=== PATIENT | female | born 1995 | race African-American/Black ===

== ENCOUNTER 2020-04-26 21:24 | Emergency (ER) | payer OTHER, SELFPAY ==
--- NOTE | ~2020-04-26 | XR_ITS ---
EXAMINATION: XR chest 2V DATE: 04/26/2020 22:08 INDICATION: Mid to right-sided chest pain TECHNIQUE: PA and lateral views of the chest were obtained. COMPARISON: None FINDINGS: The lungs are clear with no focal airspace opacities, pulmonary edema, pleural effusion or pneumothor ax. The cardiomediastinal silhouette is normal. Visualized bones and soft tissues are unremarkable. IMPRESSION: 1. Normal chest radiograph. Reviewed, dictated and finalized at location A. IMPRESSION: 1. Normal chest radiograph.
[2020-04-26 21:25] VITALS: BP 107/71; PULSE 74; RESP 18; TEMP 37.2; O2SAT 100
--- NOTE | 2020-04-26 21:33 | ECG_ITS ---
Measurements Intervals [place] Rate: 68 P: 59 MO: 135 QRS: 64 QRSD: 93 T: 28 QT: 355 QTc: 378 Interpretive Statements SINUS RHYTHM WITH SINUS ARRHYTHMIA ST ELEVATION IN DIFFUSE LEADS- PROBABLY EARLY REPOLARIZATION BORDERLINE ECG Electronically Signed On 04-27-2020 7:10:13 CDT by Felton Hawkins D.O.
[2020-04-26 21:50] LABS: Basophils Percent Auto 0.4 % (0.2-1.2); Eosinophils Absolute Auto 0.1 K/mm3 (0-0.3); Hematocrit 38.3 % (37.0-47.0); Hemoglobin 12.9 g/dL (12.0-15.0); Immature Granulocyte Absolute 0.01 K/mm3 (0.00-0.031); Immature Granulocyte Percent A 0.2 % (0-0.5); Lymphocytes Percent Auto 57.6 % (18.3-44.2); Mean Corpuscular HGB Conc 33.7 g/dl (32-36); Mean Corpuscular Hemoglobin 31.8 pg (26-34); Mean Corpuscular Volume 94.3 fl (80-100); Mean Platelet Volume 10.4 fl (7.4-10.4); Monocytes Absolute Auto 0.4 K/mm3 (0.1-0.6); Monocytes Percent Auto 7.6 % (2.6-8.5); Neutrophils Absolute Auto 1.6 K/mm3 (1.3-6.7); Neutrophils Percent Auto 33.2 % (45.5-73.1); Platelet Count Result 268 k/mm3 (150-375); Red Blood Count 4.06 M/mm3 (4.2-5.4); Red Cell Distribution Width 12.6 % (11.5-14.5); White Blood Count 4.9 K/mm3 (4.5-10.0)
[2020-04-26] MEDS: ASPIRIN 81 MG CHEWABLE TABLET 324 MG PO (21:50)
[2020-04-26 21:58] LABS: INR 1.1; Prothrombin Time 13.8 Seconds (11.1-14.7)
--- NOTE | 2020-04-26 21:58 | ED.SYNCOPE ---
HPI - Syncope General Chief Complaint: Chest Pain Stated Complaint: syncope/ CP Time Seen by Provider: 04/26/20 21:45 History of Present Illness HPI narrative: Patient presents with her female partner after fainting at work today. 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 Does not have air conditioning. She got up to return to work, and passed out. There was no injury. She has had chest pain in the afternoon, upper chest without radiation. She has no history of asthma and does not do cocaine. She has not been sick this week. She has no medical history. No surgeries. She does smoke cigarettes drinks some alcohol and smokes marijuana. MD complaint: felt faint Onset (ago): minute(s) -: second(s) Prodromal symptoms: chest pain Review of Systems Review of Systems: Narrative: CONSTITUTIONAL: Denies fever, chills, or sweats. EYES: Denies visual changes, redness, or discharge. ENT: Denies rhinorrhea, congestion, sore throat, or otalgia. CARDIOVASCULAR: Denies palpitations, or edema. RESPIRATORY: Denies cough or dyspnea. GASTROINTESTINAL: Denies abdominal pain, nausea, vomiting, or diarrhea. GENITOURINARY: Denies dysuria or hematuria. SKIN: Denies rash or itching. MUSCULOSKELETAL: Denies back pain, joint pain, or myalgia. NEUROLOGIC: Denies headache, numbness, or weakness. PSYCHIATRIC: Denies anxiety or depression. [facility] Social History Social History (Updated 04/26/20 @ 22:02 by Jennifer Fisher MD) Smoking status: Current every day smoker Alcohol intake: current Substance use: current Substance use type: marijuana Gender identity (if verbalized by the patient): Female Exam Narrative: Exam Narrative: GENERAL: Well-appearing, well-nourished, and in no acute distress. Short hair HEAD: Normocephalic, atraumatic. EYES: PERRLA and EOMI. ENT: Nares clear, no rhinorrhea or epistaxis. Mucous membranes moist. NECK: Supple. CHEST: Clear to auscultation. No respiratory distress. Nipple piercings. Tenderness at the left fourth intercostal space on the sternum. HEART: Regular rate and rhythm. No murmur heard. Normal peripheral pulses. ABDOMEN: Soft, nontender, nondistended, normal active bowel sounds. EXTREMITIES: Normal range of motion. No edema. SKIN: Warm, dry, no rash. NEURO: No focal deficits. Alert and oriented x3. PSYCH: Normal mood and affect. Course Reevaluation(s) Reevaluation #1: Went in to tell the patient that her tests are all come back fine, and that heat exposure can certainly make people faint, and the pain on her chest wall is called costochondritis, for which she could take ibuprofen. Her uncle is here now and he will drive her home. Date: 04/27/20 Time: 00:42 Vital Signs Vital signs: Vital Signs Temperature 99.0 F 04/26/20 21:25 Pulse Rate 74 04/26/20 21:25 Respiratory Rate 18 04/26/20 21:25 Blood Pressure 107/71 04/26/20 21:25 Pulse Oximetry 100 04/26/20 21:25 Temperature 99.0 F 04/26/20 21:25 Pulse Rate 74 04/26/20 21:25 Respiratory Rate 18 04/26/20 21:25 Blood Pressure 107/71 04/26/20 21:25 Pulse Oximetry 100 04/26/20 21:25 MDM - Syncope Medical Records Attestation: I reviewed the patient's medical records. Lab Data Attestation: I reviewed the patient's lab results. Result diagrams: 04/26/20 21:44 04/26/20 21:44 Labs: Lab Results 04/26/20 04/26/20 04/26/20 Range/Units 21:44 21:44 21:44 WBC 4.9 (4.5-10.0) K/mm3 RBC 4.06 L (4.2-5.4) M/mm3 Hgb 12.9 (12.0-15.0) g/dL Hct 38.3 (37.0-47.0) % MCV 94.3 (80-100) fl MCH 31.8 (26-34) pg MCHC 33.7 (32-36) g/dl RDW 12.6 (11.5-14.5) % Plt Count 268 (150-375) k/mm3 MPV 10.4 (7.4-10.4) fl Immature Gran % (Auto) 0.2 (0-0.5) % Neut % (Auto) 33.2 L (45.5-73.1) % Lymph % (Auto) 57.6 H (18.3-44.2) % [place] % (Auto) 7.6 (2.6-8.5) % Eos % (Auto) 1.0 (0-4.4) % Baso % (Auto) 0.4 (0.2-1.2)
[2020-04-26 21:59] LABS: Partial Thromboplastin Time 31.4 SECONDS (22.3-36.8)
[2020-04-26 22:02] LABS: Blood Urea Nitrogen 7 mg/dL (7-17); Calcium 9.1 mg/dL (8.4-10.2); Carbon Dioxide 28 mmol/L (22-30); Chloride 105 mmol/L (98-107); Estimated Glomerular Filt Rate > 60; Glucose 82 mg/dL (65-105); Potassium 3.7 mmol/L (3.4-5.0); Sodium 137 mmol/L (137-145)
[2020-04-26 22:14] LABS: Troponin I < 0.012 ng/mL (0.000-0.034)
[2020-04-26] MEDS: SODIUM CHLORIDE 0.9% IV 1,000 ML 999 ML IV CONT (22:19)
[2020-04-26] MEDS: BELLADONNA ALK/PHENOB ELIX 10 ML, MAG HYDROX/ALUMINUM HYD/SIMETH 30 ML, LIDOCAINE HCL 2... PO (22:19)
[2020-04-27 00:47] VITALS: BP 122/77; PULSE 80; RESP 18; O2SAT 98
--- NOTE | 2020-05-14 11:21 | PC.NURSE ---
LATE ENTRY This note is being entered to document information to the patient's record. The following information was omitted on [04/26/20], by [Griffin Knight RN]. NS stop time is 2315, 1000ml infused.
== END 2020-04-27 00:48 | disposition home or self-care (01) ==
PROVIDERS: Emergency Provider Emergency Medicine
DX: T67.8XXA Other effects of heat and light, initial encounter (principal); R55 Syncope and collapse; F17.210 Nicotine dependence, cigarettes, uncomplicated; R94.31 Abnormal electrocardiogram [ECG] [EKG]
CPT/HCPCS: 36415; 71046; 80048; 84484; 85025; 85610; 85730; 93005; 96360; 99284; A9270; J7030